=== PATIENT | male | born 1960 | race Caucasian/White ===

== ENCOUNTER 2019-10-14 19:39 | Emergency (ER) | payer BC, OTHER ==
--- NOTE | 2019-10-14 20:47 | ED ---
Lower Extremity - HPI Summary HPI Summary: Patient is a 59 y/o M presenting to the ED for a chief complaint of right knee pain for the last week. Patient reports that his right knee pain began after tripping and falling forward on his right knee. Since the fall, he has had increasing pain in the knee. Patient is able to bend the right knee, but reports difficulty ambulating and bearing weight on the knee. On triage, he rates the pain as 8/10 in severity. He has applied heat and cold compresses to the area without relief. Patient denies fever. Patient takes oxycodone 4 times a day for a history of back problems. PMHx is significant for pulmonary embolism in 2012 for which he takes Warfarin. He states he cannot take NSAIDs because he is on the blood thinner. Previously, he was seeing an orthopedic surgeon in [place], but denies seeing the surgeon recently. - History of Current Complaint Chief Complaint: EDExtremityLower Stated Complaint: RT KNEE PAIN PER PT Time Seen by Provider: 10/14/19 20:26 Hx Obtained From: Patient Mechanism Of Injury: Fall From A Standing Position, Twisted Onset of Pain: Immediate Onset/Duration: Days Severity Initially: Severe Severity Currently: Severe Pain Intensity: 8 Pain Scale Used: 0-10 Numeric Timing: Constant Location: Is Discrete @ - Right knee Associated Signs And Symptoms: Positive: Knee Pain - Right. Negative: Fever Aggravating Factor(s): Nothing Alleviating Factor(s): Nothing Able to Bear Weight: Yes - With pain - Allergies/Home Medications Allergies/Adverse Reactions: Allergies Allergy/AdvReac Type Severity Reaction Status Date / Time MS Clindamycin [Clindamycin] Allergy Severe Difficulty Verified 07/29/13 21:14 Breathing MS Doxycycline [Doxycycline] Allergy Severe Difficulty Verified 07/29/13 21:14 Breathing MS Penicillins [Penicillins] Allergy Severe Airway Verified 07/29/13 21:14 Obstruction MS Ceftriaxone Allergy Intermediate Hives Verified 10/01/13 02:33 [From Rocephin] MS Ciprofloxacin [From Cipro] Allergy Intermediate Nausea And Verified 10/01/13 02:32 Vomiting Adhesive Tape Allergy Rash Verified 10/14/19 19:45 ceftriaxone [From Rocephin] Allergy Hives Verified 10/14/19 19:56 ciprofloxacin [From Cipro] Allergy Nausea And Verified 10/14/19 19:56 Vomiting clindamycin Allergy Difficulty Verified 10/14/19 19:56 Breathing doxycycline Allergy Difficulty Verified 10/14/19 19:56 Breathing Penicillins Allergy Airway Verified 10/14/19 19:56 Obstruction Home Medications: Home Medications Atorvastatin* [Lipitor*] 10 mg PO QPM 10/14/19 [History Confirmed 10/14/19] Carvedilol TAB* [Coreg TAB*] 25 mg PO DAILY 10/14/19 [History Confirmed 10/14/19 ] Cholecalciferol TAB* [Vitamin D TAB*] 2,000 units PO DAILY 10/14/19 [History Confirmed 10/14/19] Docusate Sodium [Stool Softener] 400 mg PO DAILY 10/14/19 [History Confirmed ] Febuxostat(NF) [Uloric(NF)] 40 mg PO DAILY 10/14/19 [History Confirmed 10/14/19] Furosemide TAB* [Lasix TAB*] 20 mg PO EVERY OTHER DAY 10/14/19 [History Confirmed 10/14/19] Liraglutide (NF) [Victoza (NF)] 1.8 mg SUBCUT DAILY 10/14/19 [History Confirmed 10/14/19] Lisinopril/HCTZ (NF) [Zestoretic (NF)] 1 tab PO BID 10/14/19 [History Confirmed 10/14/19] Warfarin TAB(*) [Coumadin TAB(*)] 5 mg PO DAILY 10/14/19 [History Confirmed ] glipiZIDE TAB* [Glucotrol TAB*] 5 mg PO QAM 10/14/19 [History Confirmed 10/14/19 ] glipiZIDE TAB* [Glucotrol TAB*] 10 mg PO QPM 10/14/19 [History Confirmed ] oxyCODONE/Acetamin 10/325(NF) [Percocet 10/325 (NF)] 1 tab PO QID PRN 10/14/19 [ History Confirmed 10/14/19] PMH/Surg Hx/FS Hx/Imm Hx Previously Healthy: Yes Endocrine/Hematology History: Reports: Hx Anticoagulant Therapy - warfarin, Hx Diabetes - DMII Cardiovascular History: Reports: Hx Embolism, Hx Hypertension Respiratory History: Reports: Hx Pulmonary Embolism - 2012 [place], Other Respiratory Problems/Disorders - ex-smoker Musculoskeletal History: Reports: Hx Gout Sensory History: Denies: Hx Legally Blind, Hx Deafness Opthamlomology History: Denies: Hx Legally Blind EENT History: Denies: Hx Deafness - Surgical History Surgical History: Yes Surgery Procedure, Year, and Place: Lymph node removal, 1971, [facility], tonsils (age 11) - Immunization History Date of Tetanus Vaccine: PT STATES THAT HE IS UNSURE Date of Influenza Vaccine: 2012 Infectious Disease History: No Infectious Disease History: Denies: Traveled Outside the [place] in Last 30 Days - Family History Known Family History: Negative: Seizure Disorder - Social History Occupation: Works From/At Home Lives: With Family Alcohol Use: None Hx Substance Use: No Substance Use Type: Reports: None Hx Tobacco Use: No Smoking Status (MU): Never Smoked Tobacco Review of Systems - ROS Summary Review of Systems Summary: Furosemide TAB* [Lasix TAB*] 40 mg PO BID 12/10/12 [History Confirmed 04/26/16] Lisinopril & Hydrochlorothiazi [Lisinopril/Hydrochlorothi] 20 - 25 mg PO DAILY 12/10/12 [History Confirmed 04/26/16] Warfarin TAB(*) [Coumadin TAB(TEN)(*)] 5 mg PO DAILY 12/10/12 [History Confirmed 04/26/16] amLODIPine TAB* [Norvasc TAB*] 10 mg PO DAILY 12/10/12 [History Confirmed ] Febuxostat(NF) [Uloric(NF)] 80 mg PO BEDTIME 07/30/13 [History Confirmed ] glipiZIDE TAB* 5 mg PO BID AC 07/30/13 [History Confirmed 04/26/16] Colchicine* [Colcrys*] 0.6 mg PO DAILY 04/26/16 [History] DULoxetine DR CAP* [Cymbalta CAP*] 60 mg PO DAILY 04/26/16 [History] Fluticasone NASAL SPRAY 50MCG* [Flonase NASAL SPRAY 50MCG*] 2 spray BOTH NARES DAILY 04/26/16 [History] Ondansetron TAB* [Zofran Tab*] 8 mg PO Q6H PRN 04/26/16 [History] predniSONE 20 mg TAB [Deltasone 20 MG TAB*] 40 mg PO DAILY #10 tab 10/14/19 [Rx] Negative: Fever Positive: Arthralgia - Right knee, Decreased ROM - Right knee All Other Systems Reviewed And Are Negative: Yes Physical Exam - Summary Physical Exam Summary: General: Morbidly obese MALE. No acute distress. Neck: Soft, FROM, (-) lymphadenopathy, (-) thyromegaly, (-) JVD. Cardiovascular: Normal sinus rhythm, (-) murmur. Lungs: Clear to auscultation bilaterally (-) wheezes, (-) rales, (-) rhonchi. Abdomen: Soft, non-tender, non-distended, (-) organomegaly, normal bowel sounds. Back: (-) CVA tenderness Extremities: Mild swelling in the right inferior patella, palpable fluid collecting in the area, decreased ROM secondary to pain, mild tenderness, no erythema or warmth. Limited exam secondary to patient's size and pain. Normal sensation and strength, pulses and capillary refill distally. Skin: Warm, dry, (-) rash. Neuro: Alert and oriented x3, no focal deficits. Psychiatric: Mood normal, affect normal. Triage Information Reviewed: Yes Vital Signs On Initial Exam: Initial Vitals Temp Pulse Resp BP Pulse Ox 97.5 F 79 16 158/95 95 10/14/19 19:41 10/14/19 19:41 10/14/19 19:41 10/14/19 19:41 10/14/19 19:41 Vital Signs Reviewed: Yes Procedures - Sedation Patient Received Moderate/Deep Sedation with Procedure: No Diagnostics - Vital Signs Vital Signs Temp Pulse Resp BP Pulse Ox 10/14/19 19:41 97.5 F 79 16 158/95 95 - Laboratory Lab Statement: Any lab studies that have been ordered have been reviewed, and results considered in the medical decision making process. - Radiology Knee X-ray Radiology Interpretation Completed By: ED Physician Summary of Radiographic Findings: Knee X-ray IMPRESSION: no fracture or dislocation. Osteoarthritis. . Reviewed and interpreted by Dr. Atkins. Re-Evaluation - Re-Evaluation First Eval Re-Evaluation Time: 20:48 Change: Improved Comment: At 20:48, I have discussed results with the patient and right knee pain is resolved. Discussed symptoms that warrant immediate return to ED. Lower Extremity Course/Dx - Course Course Of Treatment: 59 year old male presents with increasing right knee pain after fall one week ago. fell forwards onto outside stairs. has been walking but pain has increased. he is taking his usual oxycodone and additional tylenol. cannot take antiinflammatories due to warfarin use. decreased range of motion secondary to pain. no significant deformity noted. xray demonstrates osteoarthritis, no obvious fracture or dislocation. tenderness at bursa. started on prednisone, 5 day burst, for bursitis and OA. follow up wiht orthopedics. rest, ice elevate. In the ED course, patient was given Prednisone 40 mg PO. - Diagnoses Provider Diagnoses: Right knee pain, Bursitis, Osteoarthritis Discharge ED - Sign-Out/Discharge Documenting (check all that apply): Patient Departure - Discharge - Discharge Plan Condition: Stable Disposition: HOME Prescriptions: predniSONE 20 mg TAB [Deltasone 20 MG TAB*] 40 mg PO DAILY #10 tab Patient Education Materials: Knee Bursitis (ED) Referrals: Artem Merion MD [Primary Care Provider] - Dom Shelton MD [Medical Doctor] - Additional Instructions: Please follow up with your primary care physician within three days. Please follow up with orthopedics. Please return to ED for any new or worsening symptoms. - Billing Disposition and Condition Condition: STABLE Disposition: Home - Attestation Statements Document Initiated by Veronicaibe: Yes Documenting Scribe: Eva Drummond Provider For Whom Vishnu is Documenting (Include Credential): Charity Atkins MD Scribe Attestation: Eva Garcia, scribed for Charity Atkins MD on 10/14/19 at 2157. Scribe Documentation Reviewed: Yes Provider Attestation: The documentation as recorded by the Eva polanco accurately reflects the service I personally performed and the decisions made by me, Charity Atkins MD Status of Scribe Document: Viewed
[2019-10-14 21:25] VITALS: BP 134/77
== END 2019-10-14 21:05 | disposition home or self-care (01) ==
LOC: ED 19:39
DX: M71.561 Other bursitis, not elsewhere classified, right knee (principal); M17.11 Unilateral primary osteoarthritis, right knee; Z86.711 Personal history of pulmonary embolism; E11.9 Type 2 diabetes mellitus without complications; I10 Essential (primary) hypertension; Z79.01 Long term (current) use of anticoagulants; Z79.84 Long term (current) use of oral hypoglycemic drugs; Z79.899 Other long term (current) drug therapy; Z88.0 Allergy status to penicillin; Z88.1 Allergy status to other antibiotic agents
CPT/HCPCS: 99282; J7512

== ENCOUNTER 2021-04-02 01:44 | Observation (INO) ==
[2021-04-02 02:16] LABS: ABS Basophils 0.2 10^3/ul (0-0.2); ABS Eosinophils 0.6 10^3/ul (0-0.6); ABS Lymphocytes 2.6 10^3/ul (1.0-4.8); ABS Monocytes 1.5 10^3/ul (0-0.8); ABS Neutrophils 7.7 10^3/ul (1.5-7.7); Eosinophil % 5.1 %; Hematocrit 46 % (42-52); Hemoglobin 16.2 g/dL (14.0-18.0); Lymphocyte % 20.2 %; Mean Corpuscular HGB Conc 35 g/dL (31-36); Mean Corpuscular Hemoglobin 32 pg (27-31); Mean Corpuscular Volume 90 fL (80-94); Mean Platelet Volume 8.8 fL (7.4-10.4); Platelet Count 281 10^3/uL (150-450); Red Blood Count 5.09 10^6 /uL (4.18-5.48); Red Cell Distribution Width 14 % (10-15); White Blood Count 12.6 10^3/uL (3.5-10.8)
[2021-04-02 02:33] LABS: Albumin 3.9 g/dL (3.2-5.2); Albumin/Globulin Ratio 1.1 (1-3); Calcium 9.8 mg/dL (8.6-10.3); EGFR African American 78.2 (>60); EGFR Non-African American 64.7 (>60); Globulin 3.5 g/dL (2-4); Magnesium 1.7 mg/dL (1.9-2.7); Potassium 3.9 mmol/L (3.5-5.0); Total Bilirubin 0.4 mg/dL (0.2-1.0); Total Protein 7.4 g/dL (6.4-8.9)
[2021-04-02 02:39] LABS: Troponin I 0.01 ng/mL (<0.03)
[2021-04-02 02:40] LABS: CKMB ng/mL 3.5 ng/mL (0.6-6.3)
[2021-04-02 03:04] LABS: TSH Ultra Thyroid Stim Horm 4.59 mcIU/mL (0.34-5.60)
[2021-04-02] MEDS ORDERED: Iodixanol (CONTRAST) 320 MG/ML 100 ML SDV IV ONE (03:35)
[2021-04-02] MEDS ORDERED: Furosemide 40 mg/4 ml IV VIAL IV SLOW PU ONE ×2 (06:27→08:14)
[2021-04-02 06:38] LABS: INR 1.26 (0.86-1.15)
[2021-04-02 06:39] LABS: Activated Partial Thrombo Time 32.9 seconds (26.0-38.0)
[2021-04-02] MEDS ORDERED: Labetalol IV 5 MG/ML 20 ml VIAL IV PUSH ONE (06:47)
[2021-04-02] MEDS ORDERED: oxyCODONE/Acetamin 5/325 mg TAB PO PRN (08:16)
[2021-04-02] MEDS ORDERED: Dextrose 50% Syringe 50 ml 25 GM/50 ML SYRINGE IV PUSH PRN (08:17)
[2021-04-02] MEDS ORDERED: Insulin GLARGINE 100 un/ml 10 ml VIAL SUBCUT SCH (09:00)
[2021-04-02] MEDS ORDERED: Magnesium Sulfate 2 gm BAG 2 GM/50 ML BAG IVPB ONE (09:48)
[2021-04-02] MEDS: DULoxetine DR 30 mg CAP PO SCH (10:29)
[2021-04-02] MEDS: Sulfamethox/Trimethoprim DS TAB 800/160 mg PO SCH ×2 (10:32→20:14)
[2021-04-02] MEDS: Labetalol IV 5 MG/ML 20 ml VIAL IV PUSH ONE ×2 (11:14→19:01)
[2021-04-02] MEDS ORDERED: Perflutren Lipid Microsphere 3 ML VIAL ONE (11:49)
[2021-04-02] MEDS ORDERED: FEBUXOSTAT 80 MG PO SCH (21:00)
[2021-04-02] MEDS ORDERED: Potassium Chloride LIQUID 20 MEQ/15 ML LIQUID PO ONE (21:49)
[2021-04-03 03:56] LABS: INR 1.45 (0.86-1.15)
[2021-04-03 04:09] LABS: Calcium 9.4 mg/dL (8.6-10.3); EGFR African American 73.1 (>60); EGFR Non-African American 60.4 (>60); Magnesium 1.9 mg/dL (1.9-2.7); Potassium 4.2 mmol/L (3.5-5.0)
[2021-04-03] MEDS ORDERED: Insulin GLARGINE 100 un/ml 10 ml VIAL SUBCUT SCH (09:00)
[2021-04-03] MEDS: Sulfamethox/Trimethoprim DS TAB 800/160 mg PO SCH (09:08)
[2021-04-03] MEDS: DULoxetine DR 30 mg CAP PO SCH (09:08)
[2021-04-03 12:18] VITALS: BP 140/84
== END 2021-04-03 13:20 | disposition home or self-care (01) ==
LOC: ED 01:44 → MEDTELE 01:44
PROVIDERS: ADMIT Internal Medicine; ATTEND Internal Medicine